=== PATIENT | female | born 1955 | race Two or more races ===

== ENCOUNTER 2019-01-31 11:30 | Emergency (ER) | payer MEDICARE, OTHER ==
[~2019-01-31] VITALS: Ht 154.9 cm; Wt 77.1 kg
[2019-01-31 11:38] VITALS: BP 130/80
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
--- NOTE | 2019-01-31 14:14 | Diagnostic Imaging Report ---
Indications: Headache and dizziness Technique: Spiral acquisitions obtained through the brain. Angled axial and coronal 5 x 5 mm slices were reconstructed. Total dose length product 1244 mGycm. CTDI vol(s) 60 mGy. Dose reduction achieved using automated exposure control Comparison: None. Findings: For acute intracranial hemorrhage or edema. No mass effect nor midline shift. Normal blue-white differentiation. Normal size ventricles and extra-axial CSF spaces. Intact calvarium. Visualized orbits and sinuses are unremarkable. The mastoids are clear Impression: Negative This agrees with the preliminary interpretation provided overnight by [facility]. The CT scanner at [facility] is accredited by the [employer] and the scans are performed using protocols designed to limit radiation exposure to as low as reasonably achievable to attain images of sufficient resolution adequate for diagnostic evaluation.
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
[2019-01-31] MEDS ORDERED: TYLENOL EXTRA500 MG ORAL (15:41)
[2019-01-31] MEDS ORDERED: ROBAXIN-750750 MG PO (15:41)
[2019-01-31 15:47] VITALS: BP 128/76
--- NOTE | 2019-01-31 15:49 | NUR ---
ER DISCHARGE NOTE: Patient is cleared to be discharged per ERMD, pt is aox4, on room air, with stable vital signs. pt was given dc and prescription instructions, pt was able to verbalize understanding, pt is able to ambulate with steady gait. pt took all belongings.
--- NOTE | 2019-02-01 12:27 | Diagnostic Imaging Report ---
Indication: Left knee pain Technique: 3 views of the left knee Comparison: None Findings: There is degenerative narrowing of the medial joint compartment. No acute fractures. No dislocations. No effusion Impression: No acute bony trauma Degenerative changes as described
== END 2019-01-31 15:47 | disposition home or self-care (01) ==
LOC: EDBD 11:30 → EMR 13:40
DX: S16.1XXA Strain of muscle, fascia and tendon at neck level, initial encounter (principal); S20.219A Contusion of unspecified front wall of thorax, initial encounter; S80.02XA Contusion of left knee, initial encounter; R51 Headache; V43.52XA Car driver injured in collision with other type car in traffic accident, initial encounter; Y92.414 Local residential or business street as the place of occurrence of the external cause
CPT/HCPCS: 70450; 72125; 99284